=== PATIENT | female | born 1960 | race Caucasian/White ===

== ENCOUNTER 2023-11-20 17:02 | Day surgery (SDC) | payer SELFPAY ==
[2023-11-20] VITALS (7 sets, daily range): BP systolic 139–181; BP diastolic 80–108
--- NOTE | 2023-11-20 14:39 | HPS.HSE ---
Family Physician
-
Family Physician:
Chief Complaint
-
anal pain
History of Present Illness
63-year-old female, new patient, presents today for what she believes is a thrombosed hemorrhoid. She states she had a thrombosed hemorrhoid 6 to 10 years ago and it was excised at [facility]. She also had 1 during her first and it was
excised in the ER. She stated this started 2 days ago and was very painful upon onset. She has had a little bit of anal bleeding. Normally she has no anal bleeding. She denies pus. She denies fevers or chills. She has been doing daily sitz bath's.
She denies nausea or vomiting or abdominal pain. Her bowel movements are regular and unchanged. She denies a history of incontinence. She has no family history of colon or rectal cancer. Her last colonoscopy was by Dr. Ward at [facility] and
she is currently due. She denies use of blood thinners immunologic drugs or steroids.
She was evaluated in clinic and was found to have three thrombosed hemorrhoids with surrounding edematous external hemorrhoids. The right posterior was particularly large. The patient was given options: either medical management with steroids/pain
medication/topical ointment vs surgery. Initially the patient opted for medical management, however, she went to the ER after she reconsidered.
Medical History
Past Medical History
Past Medical History: Reports HTN and Other (DM II)
Past Surgical History: Reports (x2), Gynocological (hysterectomy) and Other (2 prior lancings of thrombosed external hemorrhoids)
Social History
Tobacco: Non-smoker
Employment: Employed
Family History
Family History: Not pertinent
Allergies / Home Medications
Allergies reflects when Allergies were last updated in [facility].
Home Medications with original date entered in [facility] [facility]
Allergy/Medication List:
Allergies:
codeine - 'loopy'
penicillin - hives
Medications:
Jardiance(Empagliflozin) 10 MG Tablet 1 tablet Orally Once a day
Lisinopril 10 MG Tablet 1 tablet Orally Once a day
Review of Systems
-
History Source: Patient
A 12 point ROS was completed and negative except as noted: Yes
Abdomen/GI: Reports Other (anal pain, anal bleeding)
Physical Exam
Vital Signs
Vital Signs
Temp Pulse Resp BP Pulse Ox
98.3 F 96 18 181/108 95
11/20/23 13:23 11/20/23 13:23 11/20/23 13:23 11/20/23 13:23 11/20/23 13:23
Physical Exam
General: Well Developed, Well Nourished and No Apparent Distress
Rectal: Other (large external hemorrhoids, circumferential. three thrombosed hemorrhoids, largest in the right posterior aspect. GENARO deferred. )
Skin: Warm and Dry
Neuro: AO x 3
Psych: Calm
Laboratory Results
-
Labs are pending
BMP/CBC/INR/PT/Type and screen ordered
Data Reviewed
-
Old Records: Reviewed
Impression/Plan
-
IMPRESSION: thrombosed external hemorrhoids
PLAN:
Plan is for OR today for a hemorrhoidectomy. Remain NPO. Labs are ordered and pending. Discussed with patient who is in agreement.
[2023-11-20 14:47] LABS: % Basophils 0.7 % (0-2); % Eosinophils 1.5 % (0-6); % Immature Granulocytes 0.5 % (0-0.5); % Lymphocytes 34.3 % (20.5-51.1); % Monocytes 5.7 % (1.7-9.3); % Neutrophils 57.3 % (42.2-75.2); Absolute Basophils 0.1 10^3/uL (0-0.2); Absolute Eosinophils 0.1 10^3/uL (0-0.7); Absolute Lymphocytes 2.6 10^3/uL (1.2-3.4); Absolute Monocytes 0.4 10^3/uL (0.1-0.6); Absolute Neutrophils 4.3 10^3/uL (1.4-6.5); Hematocrit 46.8 % (37.0-47.0); Hemoglobin 16.4 g/dL (12.0-16.0); Mean Corpuscular Hgb 30.9 pg (27.0-31.0); Mean Corpuscular Volume 88.3 fL (81.0-99.0); Mean Platelet Volume 10.6 fL (7.4-10.4); Nucleated Red Blood Cells % 0.3 %; Platelet Count 260 10^3/uL (130-400); Red Cell Dist. Width 11.9 % (11.5-14.5); White Blood Cell Count 7.6 10^3/uL (4.8-10.8)
[2023-11-20 14:58] LABS: INR 0.93; PT 12.4 Sec (11.4-14.6)
[2023-11-20 15:00] LABS: Blood Urea Nitrogen 20 mg/dl (7-17); Calcium 10.5 mg/dl (8.4-10.2); Carbon Dioxide 29 mmol/L (22-30); Chloride 101 mmol/L (98-107); Glucose 194 mg/dl (70-99); Potassium 4.3 mmol/L (3.5-5.1); Sodium 136 mmol/L (135-145); eGFR > 60.00
--- NOTE | 2023-11-20 16:05 | ED.GENMED ---
History of Present Illness
General
Chief Complaint: Anal/Rectal Problem
Source: patient
Exam Limitations: none
Time Seen by Provider: 11/20/23 15:44
Nursing documentation reviewed up to this point in time: agreed with
Travel History
Have you had any contact with someone who has COVID-19?: No
Do you have any symptoms of coronavirus? Fever > 100 degrees, chills, cough, shortness of breath, sore throat, loss of taste or smell, muscle aches, or headache?: No
History of Present Illness
History of Present Illness:
Patient presents to ED for evaluation secondary to persistent painful rectum. Patient was evaluated by colorectal surgeon, Dr. Armstrong, who recommended that patient come to hospital for likely OR intervention. Denies fever or chills. Denies trauma.
Denies abdominal pain. Denies difficulty with bowel movements. Denies previous history of similar symptoms. Denies recent change in bowel habits.
Past History
Past History
ED Past Medical History: HTN, Hypercholesterolemia and NIDDM (Controlled with diet)
ED Past Surgical History: (X 2), Gynecological (Hysterectomy) and Other (abdominoplasty)
Social History
Tobacco: Non-smoker
Alcohol: Occasional
Personal:
Living: with family
Employment: Employed
Review of Systems
Review of Systems
Allergies reviewed?: Yes
All Other Systems: ROS reviewed and negative except as documented in HPI and ROS
Constitutional: Reports no symptoms
EENT: Reports no symptoms
ABD/GI: Reports other (Painful rectum)
: Reports no symptoms
Musculoskeletal: Reports no symptoms
Skin: Reports no symptoms
Neurological: Reports no symptoms
Phy Exam
Physical Exam
Physical Exam:
Physical Exam
General: mild painful distress, not acutely ill. afebrile
Head: nc/at. eomi
Neck: supple. normal range of motion.
Abdomen: normal bowel sounds. not tender. rectal exam: deferred.
Neuro: alert and oriented. no focal neurological deficits
Skin: no rash
Psychiatric: well kept. interactive and cooperative
Extremities: no edema. no calf tenderness.
Course
Orders/Labs/Results
Orders:
Orders
11/20/23 14:39
Type+Screen Urgent
Basic Metabolic Panel Urgent
Complete Blood Count/With Diff Urgent
Hemoglobin A1c [Glycohemoglobin (HgbA1c)] Urgent
PTT Urgent
Prothrombin Time Urgent
11/20/23 14:45
Admit/Transfer Patient As Directed
Co-Sign Provider:
Level of Care: Post Proc/Surg Recovery
Assign to:: Medical/Surgical
Physician / Group: Hoang Armstrong
Diagnosis: thrombosed external hemorrhoids
Reason for Overnight Stay: Standard of Care
11/20/23 15:34
HYDROmorphone [Dilaudid] 0.25 mg IV PACU-Q5MPRN PRN
HYDROmorphone [Dilaudid] 0.5 mg IV PACU-Q5MPRN PRN
Meperidine [Demerol] 12.5 mg IV PACU-Q5MPRN PRN
Ondansetron Injectable [Zofran] 4 mg IV PACU-ONCEPRN PRN
Prochlorperazine [Compazine] 5 mg IV PACU-ONCEPRN PRN
Notify MD As Directed
Notify physician if: for SDS patients with known or suspected sleep obstructive sleep apnea, monitor in the
PACU.
Notify MD for any apneic/desaturation episodes
O2 Therapy [RESP] Urgent
Titrate/Wean O2 to maintain O2 sat greater than (%): 92
Special Instructions: -Provide supplemental oxygen to achieve O2 sat of 92% or greater.
-After 15 min, may wean O2 and discontinue if patient is able to maintain O2 sat of 92%
or greater during recovery period.
If patient is a discharge home, without oxygen therapy, notify anestheiologist if
unable to maintain O2 SAT of 92% or greater on room air for MD clearance.
11/20/23 15:45
Normosol (Mult Electrolytes) [Normosol-R] 1,000 ml IV PER PROTOCOL
11/20/23 16:30
Normosol (Mult Electrolytes) [Normosol-R] 1,000 ml IV PER PROTOCOL
11/20/23 16:57
OR Pathology Routine
Pre-Operative Diagnosis: THROMBOSED HEMORRHOIDS
Post-Operative Diagnosis: SAME
Operative Procedure: EUA, EXCISION THROMBOSED HEMORRHOIDS
Surgeon: SANJAY
Specimen Type: LEFT LATERAL THROMBOSED EXTERNAL HEMORRHOID
:: LEFT POSTERIOR HEMORRHOID
:: RIGHT ANTERIOR HEMORRHOID
11/20/23 17:02
HYDROmorphone [Dilaudid] 0.25 mg IV PACU-Q5MPRN PRN
HYDROmorphone [Dilaudid] 0.5 mg IV PACU-Q5MPRN PRN
Meperidine [Demerol] 12.5 mg IV PACU-Q5MPRN PRN
Ondansetron Injectable [Zofran] 4 mg IV PACU-ONCEPRN PRN
Prochlorperazine [Compazine] 5 mg IV PACU-ONCEPRN PRN
11/20/23 19:00
Acetaminophen [Tylenol] 650 mg PO SDS-Q4HPRN PRN
Normosol (Mult Electrolytes) [Normosol-R] 1,000 ml IV SDS-ONCE
Ondansetron Injectable [Zofran] 4 mg IV SDS-ONCEPRN PRN
Oxycodone [Roxicodone] 10 mg PO SDS-Q4HPRN PRN
Oxycodone [Roxicodone] 5 mg PO SDS-Q4HPRN PRN
11/20/23 22:00
Dibucaine [Nupercainal 1% Ointment] See Dose Instructions TOPICAL TID
Abnormal Lab Results
11/20/23 11/20/23 11/20/23
14:39 16:09 17:49
Hgb 16.4 H g/dL
(12.0-16.0)
MPV 10.6 H fL
(7.4-10.4)
BUN 20 H mg/dl
(7-17)
Glucose 194 H mg/dl
(70-99)
Calcium 10.5 H mg/dl
(8.4-10.2)
POC Glucose 167 H mg/dl 173 H mg/dl
(70-99) (70-99)
11/20/23 14:39
11/20/23 14:39
Vital Signs
Initial and Last Documented VS:
Initial Vital Signs
Temp Pulse Resp BP Pulse Ox
98.3 F 96 18 181/108 95
11/20/23 13:23 11/20/23 13:23 11/20/23 13:23 11/20/23 13:23 11/20/23 13:23
Last Documented Vital Signs
Temp Pulse Resp BP Pulse Ox
97.7 F 66 12 156/80 97
11/20/23 18:29 11/20/23 18:45 11/20/23 18:45 11/20/23 18:45 11/20/23 18:45
MDM/Problems Addressed
MDM/Problems Addressed:
Discussed with , colorectal surgery - will proceed to OR.
*Critical Care Note
Total Time (30-74mins, 75-104mins- exclusive of procedures): Not Applicable
ED Attending Note
-
Portions of this chart may have been created with voice recognition software.� Occasional wrong word or��sound alike� substitutions may have occurred due to the inherent limitations of voice recognition software.
Discharge Plan
Departure
Patient Disposition: OR
Date of Disposition: 11/20/23
Time of Disposition: 15:53
Presentation/result/management discussed w/ accepting MD/DO:
Discharge Problem:
Hemorrhoids, thrombosed
Interventions
Interventions:
ED- Fall Risk Assessment Last Done: 11/20/23 16:16
*ED COVID-19 Vaccine History Last Done: 11/20/23 13:23
*Nursing Disposition Last Done: 11/20/23 16:16
Discharge Date and Time
Discharge Date/Time: 11/20/23 16:24
[2023-11-20 16:11] LABS: Glucose - Point of Care 167 mg/dl (70-99)
--- NOTE | 2023-11-20 17:41 | W.IMMPOSTOP ---
Addendum entered and electronically signed by Hoang Armstrong MD 11/20/23 17:53:
Correction: hemorrhoids in left lateral, left anterior and right posterior positions
Original Note:
Surgical Immed Post Op Note
-
Primary Surgeon: Hoang Armstrong MD
Assisting Surgeon: None
Pre-op Diagnosis: Thrombosed external hemorrhoids x 3
Post-op Diagnosis: Same
Procedure Performed: Excision of thrombosed external hemorrhoids
Anesthesia Type: MAC with local
Specimen / Cultures: Left lateral hemorrhoid, left posterior hemorrhoid, right anterior hemorrhoid
Estimated Blood Loss: 50 mL
Complications: None
Operative Findings: Large left lateral thrombosed external hemorrhoid, about 2 x 3 cm; small left posterior thrombosed external hemorrhoid, about 1 x 0.5 cm; medium right anterior thrombosed external hemorrhoid about 1.5 x 1 cm; excised and left the
wounds open; controlled bleeding from the left lateral wound with 1 figure of eight 2-0 Vicryl and electrocautery; controlled bleeding from the right anterior wound with 3 figure of eight 2-0 Vicryl's and electrocautery; placed Surgicel
prophylactically and dressed anal canal with 4 x 4's and silk tape
--- NOTE | 2023-11-20 17:46 | OR.RPT ---
Operative Report
Operative Report
DATE OF OPERATION: 11/20/2023
SURGEON: Hoang Armstrnog MD
PREOPERATIVE DIAGNOSIS: Thrombosed external hemorrhoids x 3
POSTOPERATIVE DIAGNOSIS: Thrombosed external hemorrhoids x 3
OPERATION: Exam under anesthesia, excision of thrombosed external hemorrhoids x 3, bilateral pudendal nerve block
ASSISTANTS:
1. None
ANESTHESIA: MAC w/ local
ESTIMATED BLOOD LOSS: 50 mL
FINDINGS:
1. 3 x 2 cm left lateral thrombosed external hemorrhoid
2. 1 x 0.5 cm left anterior thrombosed external hemorrhoid
3. 1.5 x 1 cm right posterior thrombosed external hemorrhoid
SPECIMENS:
1. Per findings
DRAINS: None
COMPLICATIONS: None
INDICATIONS: The patient is a 63-year-old female who presented to the office for severe anal pain for 2 days. She has had thrombosed external hemorrhoids in the past which were excised. On exam, there were 3 thrombosed external hemorrhoids. It
was felt that performing an office-based excision would be too risky and therefore it was recommended to be treated in the OR or treated symptomatically with pain control and steroid cream. Due to the severe pain, the patient elected to go to the
ED for surgery. The operation was discussed with the patient in detail, including the risks, benefits and alternatives. Risks described included, but not limited to bleeding, infection, damage to nearby structures such as the anal sphincter, fecal
incontinence, recurrence, urinary retention, anal stenosis, and anesthetic risks. The patient understood and agreed to proceed. The consent was signed and placed in the chart.
PROCEDURE IN DETAIL: The patient was taken to the operating room and placed on the operating table in prone position. Sequential compression devices were placed bilaterally. Sedation was commenced without complication. Two seat belts were secured
around the legs and upper back. The buttocks were taped apart. The perineum was prepped and draped in the usual fashion. A time-out was then performed verifying the correct patient, procedure, operative site, positioning, and special equipment.
Local anesthesia used was a mixture of 60 mL of 0.25% Marcaine without epinephrine and 0.6 mL of dexamethasone. 40 mL was injected perianally at the beginning of the case. The anorectal exam was performed assessing all four quadrants of the anal
canal using Hill-Nelson retractors in progressively increasing size. She was noted to have circumferential bunching of the anoderm, consistent with skin tags. In the left lateral position, there was a large 3 x 2 cm thrombosed external
hemorrhoid without evidence of necrosis or infection. There was a small immediately adjacent thrombosed external hemorrhoid in the left anterior position, about 1 x 0.5 cm, again without necrosis or infection. There was a 1.5 x 1 cm thrombosed
external hemorrhoid in the right posterior position without infection or necrosis. There were no significant internal hemorrhoids. The rectal mucosa appeared healthy. No other pathology was obviously noted.
For the large left lateral thrombosed external hemorrhoid, it was grasped with an Allis clamp and elevated. A 15 blade scalpel was used to incise the anoderm immediately adjacent to the hemorrhoid. A Metzenbaum scissors was used to meticulously
dissected the hemorrhoid off of the underlying sphincter in order to avoid injury to the sphincter. The hemorrhoid was then passed off as specimen. There was bleeding noted close to the dentate line which was controlled with 1 [id number] 2-0
Vicryl stitch. Oozing from the base of the wound was controlled with electrocautery.
The left anterior and right posterior thrombosed external hemorrhoids were removed in similar fashion. However, hemostasis was achieved with the left anterior wound with just electrocautery. From the right posterior wound, there was bleeding near
the dentate line, which was controlled with 4 [id number] 2-0 Vicryl stitches.
The wounds and anal canal were irrigated. The remaining 20 mL of local were injected. 5 mL was injected bilaterally for a pudendal nerve block. 10 mL was injected around the surgical site and perianally. Hemostasis was checked once more with the
smallest Anmol and was confirmed. Surgicel was placed in the operative site prophylactically.
At this point, the procedure was complete. All needle, sponge and instrument counts were correct. The patient tolerated the procedure well and was transferred to the recovery room in stable condition with mesh underwear and gauze dressing in place.
DICTATED BY: Hoang Armstrong MD
[2023-11-20 17:52] LABS: Glucose - Point of Care 173 mg/dl (70-99)
[2023-11-21 08:59] LABS: Glycohemoglobin (HgbA1c) 11.1 % (4.0-5.6)
== END 2023-11-20 19:07 | disposition home or self-care (01) ==
LOC: SDS 17:02
PROVIDERS: Physician Assistant; ATTENDING PHYSICIAN Surgery; EMERGENCY PHYSICIAN Emergency Medicine
DX: K64.5 Perianal venous thrombosis (principal)
CPT/HCPCS: 46320; 88304; 80048; 82962; 83036; 85025; 85610; 85730; 86850; 86900; 86901; 99285

== ENCOUNTER → 2024-02-10 06:23 | Day surgery (SDC) | payer BC, SELFPAY ==
[2024-02-10 07:19] LABS: Glucose - Point of Care 175 mg/dl (70-99)
== END ==
LOC: GI 06:23
PROVIDERS: ATTENDING PHYSICIAN Surgery
DX: Z12.11 Encounter for screening for malignant neoplasm of colon (principal); K57.30 Diverticulosis of large intestine without perforation or abscess without bleeding; K64.8 Other hemorrhoids; K64.4 Residual hemorrhoidal skin tags; K62.1 Rectal polyp; Z86.010 Personal history of colon polyps
CPT/HCPCS: 45385; 88305; 82962

== ENCOUNTER → 2024-03-19 07:09 | Outpatient (REF) | payer BC, SELFPAY | LOC: HWRAD 07:09 | PROVIDERS: ATTENDING PHYSICIAN Surgery; FAMILY PHYSICIAN Internal Medicine | DX: R10.11 Right upper quadrant pain (principal) | CPT/HCPCS: 76700 ==

== ENCOUNTER → 2024-06-01 07:05 | Outpatient (REF) | payer OTHER, SELFPAY | LOC: RCS 07:05 | PROVIDERS: ATTENDING PHYSICIAN Internal Medicine Cardiovascular Disease | DX: R94.31 Abnormal electrocardiogram [ECG] [EKG] (principal); I10 Essential (primary) hypertension; I49.3 Ventricular premature depolarization | CPT/HCPCS: 78452; 93017; A9500 ==